=== PATIENT | male | born 1950 | race Caucasian/White ===

== ENCOUNTER 2017-09-24 09:42 | Observation (INO) | payer BC ==
[2017-09-24] MEDS ORDERED: Lisinopril 10 MG Tab PO ONE (10:52)
--- NOTE | 2017-09-24 10:56 | EDM.PDOC ---
ED HPI GENERAL MEDICAL PROBLEM - General Chief Complaint: Chest Pain Stated Complaint: [facility] Time Seen by Provider: 09/24/17 10:04 Source of Information: Reports: Patient, Family (), RN Notes Reviewed History Limitations: Reports: No Limitations - History of Present Illness INITIAL COMMENTS - FREE TEXT/NARRATIVE: The patient states that he developed some dizziness around 08:00 this morning, then some retrosternal chest discomfort around 08:30, as he was preparing to get on a horse. He states that his symptoms came on while he was standing around , not significantly exerting himself. He describes the chest discomfort as a "tightening". It is a discomfort, not a pain. It does not radiate. No associated nausea, dyspnea, diaphoresis, or sense of impending doom. It came on gradually. He was given a sublingual nitroglycerin per EMS at 09:15, which did not improve his symptoms, but a second one at 09:25 reduced his discomfort from a "3" to a "1 to 2". He states that his discomfort has increased since arriving to the ED, however. The patient states that he took 325 mg aspirin at 08:55. The patient stated that he had not previously had similar symptoms, however, his stated that he reported similar symptoms 2-3 weeks ago, on and off, but that they were not as severe, therefore the patient did not seek medical attention, and he essentially forgot about it. The patient's PCP is Dr. Michael Gamez. 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 Chest Pain Score (Numeric/FACES): 1 - Related Data Allergies Allergy/AdvReac Type Severity Reaction Status Date / Time tetracycline [Tetracycline] Allergy Rash Verified 09/24/17 09:46 Home Meds: Home Meds Lisinopril 10 mg PO DAILY 09/24/17 [History] Past Medical History Cardiovascular History: Reports: Hypertension Gastrointestinal History: Reports: GERD (untreated) Musculoskeletal History: Reports: Gout (suspected, not confirmed) Endocrine/Metabolic History: Reports: Obesity/BMI 30+ - Infectious Disease History Infectious Disease History: Reports: Chicken Pox, Measles, Mumps - Past Surgical History GI Surgical History: Reports: Other (See Below) (Volvulus repair) Musculoskeletal Surgical History: Reports: Knee Replacement (right, 02/10/2016) Social & Family History - Tobacco Use Smoking Status *Q: Never Smoker Years of Tobacco use: 40 Used Tobacco, but Quit: No Second Hand Smoke Exposure: No - Alcohol Use Days Per Week of Alcohol Use: 3 Number of Drinks Per Day: 3 Total Drinks Per Week: 9 - Recreational Drug Use Recreational Drug Use: No - Living Situation & Occupation Living situation: Reports: , with Family Occupation: Employed ED ROS GENERAL - Review of Systems Review Of Systems: See Below Constitutional: Reports: No Symptoms HEENT: Reports: No Symptoms Respiratory: Reports: No Symptoms Cardiovascular: Reports: No Symptoms Endocrine: Reports: No Symptoms GI/Abdominal: Reports: No Symptoms : Reports: No Symptoms Musculoskeletal: Reports: No Symptoms Skin: Reports: No Symptoms Neurological: Reports: No Symptoms Psychiatric: Reports: No Symptoms Hematologic/Lymphatic: Reports: No Symptoms Immunologic: Reports: No Symptoms ED EXAM, GENERAL - Physical Exam Exam: See Below Exam Limited By: No Limitations General Appearance: Alert, WD/WN, No Apparent Distress Eye Exam: Bilateral Eye: Normal Inspection Ears: Normal External Exam, Hearing Grossly Normal Nose: Normal Inspection, No Blood Throat/Mouth: Normal Inspection, Normal Lips, Normal Voice, No Airway Compromise Head: Atraumatic, Normocephalic Neck: Normal Inspection, Full Range of Motion Respiratory/Chest: No Respiratory Distress, Lungs Clear, Normal Breath Sounds, No Accessory Muscle Use, Chest Non-Tender Cardiovascular: Normal Peripheral Pulses, Regular Rate, Rhythm, No Gallop, No JVD, No Murmur, No Rub Peripheral Pulses: 4+: Radial (L), Radial (R) GI/Abdominal: Normal Bowel Sounds, Soft, Non-Tender, No Organomegaly, No Distention, No Abnormal Bruit, No Mass, Other (Obese) (Male) Exam: Deferred Rectal (Males) Exam: Deferred Back Exam: Normal Inspection, Full Range of Motion, NT Extremities: Normal Inspection, Normal Range of Motion, No Pedal Edema, Normal Capillary Refill Neurological: Alert, Oriented, Normal Cognition, No Motor/Sensory Deficits Psychiatric: Normal Affect Skin Exam: Warm, Dry, Intact, Normal Color, No Rash EKG INTERPRETATION EKG Date: 09/24/17 Time: 09:46 Rhythm: Other (Sinus bradycardia) Rate (Beats/Min): 55 [place]: Normal P-Wave: Present (1st degree AVB) QRS: Normal ST-T: Normal QT: Normal Comparison: No Change (01/28/2015) Course - Vital Signs Last Recorded V/S: Last Vital Signs Temp 36.4 C 09/24/17 09:47 Pulse 57 L 09/24/17 09:47 Resp 13 09/24/17 09:47 BP 162/106 H 09/24/17 11:05 Pulse Ox 97 09/24/17 09:47 - Orders/Labs/Meds Orders: Active Orders 24 hr Category Date Time Status EKG Documentation Completion [RC] ONETIME Care 09/24/17 12:30 Active EKG Documentation Completion [RC] STAT Care 09/24/17 10:16 Active Chest 2V [CR] Stat Exams 09/24/17 10:16 Taken Labs: Laboratory Tests 09/24/17 09/24/17 09/24/17 Range/Units 09:50 09:50 09:50 WBC 4.89 (4.23-9.07) K/mm3 RBC 4.57 L (4.63-6.08) M/mm3 Hgb 14.7 (13.7-17.5) gm/L Hct 42.3 (40.1-51.0) % MCV 92.6 H (79.0-92.2) fl MCH 32.2 (25.7-32.2) pg MCHC 34.8 (32.2-35.5) g/dl RDW Std Deviation 39.8 (35.1-43.9) fL Plt Count 197 (163-337) K/mm3 MPV 9.4 (9.4-12.3) fl Neutrophils % (Manual) 71 H (40-60) % Band Neutrophils % 0 (0-10) % Lymphocytes % (Manual) 23 (20-40) % Atypical Lymphs % 0 % Monocytes % (Manual) 1 L (2-10) % Eosinophils % (Manual) 4 (0.8-7.0) % Basophils % (Manual) 1 (0.2-1.2) Platelet Estimate Adequate RBC Morph Comment Normal PT 11.1 (8.0-13.0) SECONDS INR 1.02 APTT 28 (22-36) SECONDS D-Dimer, Quantitative 0.20 (0.19-0.59) mg/L Sodium 141 (136-145) mEq/L Potassium 4.2 (3.5-5.1) mEq/L Chloride 103 (98-107) mEq/L Carbon Dioxide 27 (21-32) mEq/L Anion Gap 15.2 H (5-15) BUN 19 H (7-18) mg/dL Creatinine 1.0 (0.7-1.3) mg/dL Est Cr Clr Drug Dosing 77.06 mL/min Estimated GFR (MDRD) > 60 (>60) mL/min BUN/Creatinine Ratio 19.0 H (14-18) Glucose 93 (80-115) mg/dL Calcium 9.5 (8.5-10.1) mg/dL Total Bilirubin 0.6 (0.2-1.0) mg/dL AST 29 (15-37) U/L ALT 33 (16-63) U/L Alkaline Phosphatase 65 (46-116) U/L Troponin I < 0.017 (0.00-0.056) ng/mL NT-Pro-B Natriuret Pep 50 (0-125) pg/mL Total Protein 7.5 (6.4-8.2) g/dl Albumin 4.3 (3.4-5.0) g/dl Globulin 3.2 gm/dL Albumin/Globulin Ratio 1.3 (1-2) 09/24/ Range/Units 12:34 WBC (4.23-9.07) K/mm3 RBC (4.63-6.08) M/mm3 Hgb (13.7-17.5) gm/L Hct (40.1-51.0) % MCV (79.0-92.2) fl MCH (25.7-32.2) pg MCHC (32.2-35.5) g/dl RDW Std Deviation (35.1-43.9) fL Plt Count (163-337) K/mm3 MPV (9.4-12.3) fl Neutrophils % (Manual) (40-60) % Band Neutrophils % (0-10) % Lymphocytes % (Manual) (20-40) % Atypical Lymphs % % Monocytes % (Manual) (2-10) % Eosinophils % (Manual) (0.8-7.0) % Basophils % (Manual) (0.2-1.2) Platelet Estimate RBC Morph Comment PT (8.0-13.0) SECONDS INR APTT (22-36) SECONDS D-Dimer, Quantitative (0.19-0.59) mg/L Sodium (136-145) mEq/L Potassium (3.5-5.1) mEq/L Chloride (98-107) mEq/L Carbon Dioxide (21-32) mEq/L Anion Gap (5-15) BUN (7-18) mg/dL Creatinine (0.7-1.3) mg/dL Est Cr Clr Drug Dosing mL/min Estimated GFR (MDRD) (>60) mL/min BUN/Creatinine Ratio (14-18) Glucose (80-115) mg/dL Calcium (8.5-10.1) mg/dL Total Bilirubin (0.2-1.0) mg/dL AST (15-37) U/L ALT (16-63) U/L Alkaline Phosphatase (46-116) U/L Troponin I < 0.017 (0.00-0.056) ng/mL NT-Pro-B Natriuret Pep (0-125) pg/mL Total Protein (6.4-8.2) g/dl Albumin (3.4-5.0) g/dl Globulin gm/dL Albumin/Globulin Ratio (1-2) Meds: Medications Discontinued Medications Generic Name Dose Route Start Last Admin Trade Name Freq PRN Reason Stop Dose Admin Lisinopril 10 mg 09/24/17 10:52 09/24/17 11:05 Prinivil PO 09/24/17 10:53 10 mg ONETIME ONE Administration - Re-Assessments/Exams Free Text/Narrative Re-Assessment/Exam: 09/24/17 10:52 The patient presents with retrosternal chest discomfort, a pressure sensation, that came on gradually with minimal exertion, and was partially relieved with nitroglycerin. This is angina. As his pain was partially relieved with nitroglycerin, this indicates incomplete blockage of a coronary artery, indicating that his troponin will likely be negative. This is buttressed by a non-acute ECG. I explained to the patient that I expect his initial troponin to be negative, and I will run a second troponin 4 hours after the onset of his symptoms, but I would expect that to be negative, as well. Nevertheless, I expect to admit the patient to the hospital for further evaluation. The patient and his expressed understanding. Two-view chest radiograph appears to be grossly normal. Cardiac silhouette is within normal limits. No pulmonary vascular congestion. No pleural effusions. No focal infiltrate. No pneumothorax. Formal read per the Radiologist pending. The patient's blood pressure has risen to 170/105, with a heart rate of 58. As the patient is not sure if he took his lisinopril this morning, I have ordered 10 mg oral lisinopril. I would like to give the patient a beta apoorva, but, unfortunately, with a heart rate of 58, I cannot. As per the HPI, the patient took 325 mg aspirin at 08:55 this morning. 09/24/17 11:24 The patient's initial workup, including troponin, is unremarkable. I have ordered a second troponin and ECG to be obtained at 12:30. 09/24/17 12:22 Repeat ECG at 12:18 demonstrates a normal sinus rhythm at 63 bpm. There is a first-degree AV block. There is LAD, but no LVH. No acute ST changes. No Q waves seen. No significant change from the earlier ECG at 09:46. 09/24/17 13:24 The patient's repeat ECG is undetectably low. The patient's case was discussed with Dr. Dubois at 13:17. He agrees to admit the patient to telemetry for an anticipated stress test this coming Tuesday, . The above was then discussed with the patient and his family. The patient is agreeable to the above plan. Departure - Departure Time of Disposition: 13:25 Disposition: Refer to Observation Condition: Fair Clinical Impression: New-onset angina - My Orders Last 24 Hours: My Active Orders 09/24/17 10:16 EKG Documentation Completion [RC] STAT Chest 2V [CR] Stat 09/24/17 12:30 EKG Documentation Completion [RC] ONETIME - Assessment/Plan Last 24 Hours: My Active Orders 09/24/17 10:16 EKG Documentation Completion [RC] STAT Chest 2V [CR] Stat 09/24/17 12:30 EKG Documentation Completion [RC] ONETIME
[2017-09-24] MEDS ORDERED: LORazepam 2 MG/ML MDV IV PRN (14:13)
[2017-09-24] MEDS ORDERED: Promethazine 12.5 MG in Sodium Chloride 0.9% 50 ML IV PRN (14:13)
[2017-09-24] MEDS ORDERED: Acetaminophen 325 MG Tab PO PRN (14:13)
[2017-09-24] MEDS ORDERED: Ondansetron 4 MG/2 ML SDV IV PRN (14:13)
[2017-09-24] MEDS ORDERED: Morphine 2 MG/ML Syringe IVPUSH PRN (14:13)
[2017-09-24] MEDS ORDERED: Acetaminophen/HYDROcodone 325-5 MG Tab PO PRN (14:13)
[2017-09-24] MEDS ORDERED: Metoprolol Tartrate 5 MG/5 ML SDV IVPUSH PRN (14:15)
[2017-09-24] MEDS ORDERED: Nitroglycerin 0.4 MG Tab.SL SL PRN (14:23)
--- NOTE | 2017-09-24 14:23 | PCM.HP ---
H&P History of Present Illness - General Date of Service: 09/24/17 Admit Problem/Dx: Admission Diagnosis/Problem Admission Diagnosis/Problem Angina Source of Information: Patient, Family, Old Records, Provider, RN Notes Reviewed History Limitations: Reports: No Limitations - History of Present Illness Initial Comments - Free Text/Narative: This is a 66 yo white male with past medical hx/o GERD, Gout and HTN who comes in with complaints of retro-sternal chest pain that started about 8:30 this morning while he was preparing to get onto a horse. His chief complaint is associated with sudden onset of dizziness. He describes his chest pain as tightness but without radiation to his neck or arms. He denies any nausea, vomiting, diaphoresis or sense of impending doom. His chest pain improved after receiving 2 doses of sublingual nitroglycerin provided by EMS. He also took aspirin 325 mg by mouth prior to presentation to the emergency department. He denies any history of TN or stroke in the past and no premature coronary artery disease in the family. His initial workup in emergency department shows a fairly unremarkable CBC. INR is 1.02 and D-dimer is 0.2. His chemistry is remarkable for anion gap of 15.2, BUN of 19, and normal troponin level 2. His initial EKG shows sinus bradycardia with a heart rate of 55. Patient is being admitted for chest pain rule out ACS. He is full code. Chest Pain Score (Numeric/FACES): 1 - Related Data Allergies/Adverse Reactions: Allergies Allergy/AdvReac Type Severity Reaction Status Date / Time tetracycline [Tetracycline] Allergy Rash Verified 09/24/17 15:23 Home Medications: Home Meds Lisinopril 10 mg PO DAILY 09/24/17 [History] Past Medical History - Past Health History Medical/Surgical History: Denies Medical/Surgical History Cardiovascular History: Reports: Hypertension Gastrointestinal History: Reports: GERD (untreated) Musculoskeletal History: Reports: Gout (suspected, not confirmed) Endocrine/Metabolic History: Reports: Obesity/BMI 30+ - Infectious Disease History Infectious Disease History: Reports: Chicken Pox, Measles, Mumps - Past Surgical History GI Surgical History: Reports: Other (See Below) (Volvulus repair) Musculoskeletal Surgical History: Reports: Knee Replacement (right, 02/10/2016) Social & Family History - Tobacco Use Smoking Status *Q: Never Smoker Years of Tobacco use: 40 Used Tobacco, but Quit: No Second Hand Smoke Exposure: No - Alcohol Use Days Per Week of Alcohol Use: 3 Number of Drinks Per Day: 3 Total Drinks Per Week: 9 - Recreational Drug Use Recreational Drug Use: No - Living Situation & Occupation Living situation: Reports: , with Family Occupation: Employed H&P Review of Systems - Review of Systems: Review Of Systems: See Below General: Denies: Fever, Chills, Malaise, Weakness, Fatigue HEENT: Denies: Contact Lenses Pulmonary: Denies: Shortness of Breath Cardiovascular: Reports: Chest Pain, Lightheadedness. Denies: Dyspnea on Exertion Gastrointestinal: Denies: No Symptoms, Constipation Genitourinary: Reports: No Symptoms Musculoskeletal: Reports: No Symptoms Skin: Reports: No Symptoms Psychiatric: Denies: Confusion, Mood Lability, Anxiety, Hallucinations Neurological: Reports: Dizziness. Denies: Confusion, Difficulty Walking, Weakness, Gait Disturbance Hematologic/Lymphatic: Reports: No Symptoms Immunologic: Reports: No Symptoms Exam - Exam Exam: See Below - Vital Signs Vital Signs: Last Vital Signs Temp 36.4 C 09/24/17 09:47 Pulse 57 L 09/24/17 09:47 Resp 13 09/24/17 09:47 BP 162/106 H 09/24/17 11:05 Pulse Ox 97 09/24/17 09:47 Weight: 102.058 kg - Exam Quality Assessment: No: Supplemental Oxygen General: Alert, Oriented, Cooperative, Other (Obese) HEENT: Conjunctiva Clear, EACs Clear, EOMI, Hearing Intact, Mucosa Moist & [place] , Nares Patent, Normal Nasal Septum, Posterior Pharynx Clear, Pupils Equal, Pupils Reactive Neck: Supple, Trachea Midline, +2 Carotid Pulse wo Bruit, Full Range of Motion. No: JVD Lungs: Clear to Auscultation, Normal Respiratory Effort Cardiovascular: Regular Rate, Regular Rhythm, Other (No pain with palpation) GI/Abdominal Exam: Normal Bowel Sounds, Soft, Non-Tender, No Organomegaly, No Distention, No Abnormal Bruit, No Mass, Pelvis Stable (Male) Exam: Deferred Rectal (Males) Exam: Deferred Back Exam: Normal Inspection, Decreased Range of Motion Extremities: Normal Inspection, Normal Range of Motion, Non-Tender, No Pedal Edema, Normal Capillary Refill Peripheral Pulses: 2+: Posterior Tibial (L), Posterior Tibial (R), Dorsalis Pedis (L), Dorsalis Pedis (R) Skin: Warm, Dry, Intact Neuro Extensive - Mental Status: Oriented x3, Normal Cognition, Memory Intact Neuro Extensive - Motor, Sensory, Reflexes: CN II-XII Intact, Normal Gait Psychiatric: Alert, Normal Affect, Normal Mood - Patient Data Result Diagrams: 09/24/17 09:50 09/24/17 09:50 EKG INTERPRETATION EKG Date: 09/24/17 Time: 09:46 Rhythm: Other (Sinus Bradycardia) Rate (Beats/Min): 55 [place]: Normal P-Wave: Present QRS: Normal ST-T: Normal QT: Normal Comparison: Change From Previous EKG *Q Meaningful Use (ADM) - VTE *Q VTE Criteria *Q: - Stroke *Q Stroke Criteria *Q: - AMI *Q AMI Criteria *Q: Problem List Initiated/Reviewed/Updated: Yes Orders Last 24hrs: Active Orders 24 hr Category Date Time Status Admission Status [Patient Status] [ADT] Routine ADT 09/24/17 14:07 Active Antiembolic Devices [RC] PER UNIT ROUTINE Care 09/24/17 14:13 Ordered Cardiac Monitoring [RC] CONTINUOUS Care 09/24/17 14:13 Ordered EKG 12 Lead [EKG Documentation Completion] [RC] AM Care 09/25/17 09:00 Ordered Height and Weight [RC] DAILY Care 09/24/17 14:13 Ordered Intake and Output [RC] QSHIFT Care 09/24/17 14:13 Ordered Oxygen Therapy [RC] PRN Care 09/24/17 14:13 Ordered Up With Assistance [RC] ASDIRECTED Care 09/24/17 14:13 Ordered Up ad Lynette [RC] ASDIRECTED Care 09/24/17 14:13 Ordered VTE/DVT Education [RC] PER UNIT ROUTINE Care 09/24/17 14:13 Ordered Vital Signs [RC] Q4H Care 09/24/17 14:13 Ordered Consult to Case Management [CONS] Routine Cons 09/24/17 14:14 Ordered Consult to Auxiliary Powerplant Operator [CONS] Routine Cons 09/24/17 14:14 Ordered Regular Diet [DIET] Diet 09/24/17 Lunch Ordered BASIC METABOLIC PANEL,BMP [CHEM] AM Lab 09/25/17 05:11 Ordered BASIC METABOLIC PANEL,BMP [CHEM] AM Lab 09/26/17 05:11 Ordered BASIC METABOLIC PANEL,BMP [CHEM] AM Lab 09/27/17 05:11 Ordered CKMB [CHEM] AM Lab 09/25/17 05:11 Ordered CKMB [CHEM] Routine Lab 09/24/17 18:00 Ordered LIPID PANEL [CHEM] AM Lab 09/25/17 05:11 Ordered MAGNESIUM [CHEM] AM Lab 09/25/17 05:11 Ordered MAGNESIUM [CHEM] AM Lab 09/26/17 05:11 Ordered MAGNESIUM [CHEM] AM Lab 09/27/17 05:11 Ordered TROPONIN I [CHEM] AM Lab 09/25/17 05:11 Ordered TROPONIN I [CHEM] Routine Lab 09/24/17 18:00 Ordered Acetaminophen [Tylenol] Med 09/24/17 14:13 Ordered 650 mg PO Q4H PRN Acetaminophen/HYDROcodone [[place] 325-5 MG] Med 09/24/17 14:13 Ordered 1 tab PO Q4H PRN Famotidine [Pepcid] Med 09/24/17 21:00 Ordered 20 mg IVPUSH BID LORazepam [Ativan] Med 09/24/17 14:13 Ordered 1 mg IV Q6H PRN Lisinopril [Prinivil] Med 09/25/17 09:00 Ordered 10 mg PO DAILY Magnesium Rep Pharmacy to Dose [Pharmacy to Dose - Med 09/24/17 14:15 Ordered Magnesium Replacement] 1 dose .XX ASDIRECTED Metoprolol Tartrate [Lopressor] Med 09/24/17 14:15 Ordered 5 mg IVPUSH Q4H PRN Morphine Med 09/24/17 14:13 Ordered 1 mg IVPUSH Q4H PRN Ondansetron [Zofran] Med 09/24/17 14:13 Ordered 4 mg IV Q6H PRN Potassium Rep Pharmacy to Dose [Pharmacy to Dose - Med 09/24/17 14:15 Ordered Potassium Replacement] 1 dose .XX ASDIRECTED Promethazine [Phenergan] 12.5 mg Med 09/24/17 14:13 Ordered Sodium Chloride 0.9% [Normal Saline] 50 ml IV Q6H hydrALAZINE [Apresoline] Med 09/24/17 14:15 Ordered 20 mg IVPUSH Q4H PRN Sequential Compression Device [OM.PC] Per Unit Routine Oth 09/24/17 14:13 Ordered Resuscitation Status Routine Resus Stat 09/24/17 14:13 Ordered Medication Orders Acetaminophen (Tylenol) 650 mg PO Q4H PRN PRN Reason: Pain (Mild 1-3)/fever Hydrocodone Bitart/Acetaminophen ([place] 325-5 Mg) 1 tab PO Q4H PRN PRN Reason: Pain (moderate 4-6) Famotidine (Pepcid) 20 mg IVPUSH BID CORA Hydralazine HCl (Apresoline) 20 mg IVPUSH Q4H PRN PRN Reason: Hypertension Promethazine HCl 12.5 mg/ (Sodium Chloride) 50.5 mls @ 100 mls/hr IV Q6H PRN PRN Reason: Nausea/Vomiting Lisinopril (Prinivil) 10 mg PO DAILY [place]A Lorazepam (Ativan) 1 mg IV Q6H PRN PRN Reason: Anxiety Magnesium Sulfate (Pharmacy To Dose - Magnesium Replacement) 1 dose .XX ASDIRECTED [facility] Metoprolol Tartrate (Lopressor) 5 mg IVPUSH Q4H PRN PRN Reason: Tachycardia Morphine Sulfate (Morphine) 1 mg IVPUSH Q4H PRN PRN Reason: Pain (severe 7-10) Stop: 09/25/17 14:13 Ondansetron HCl (Zofran) 4 mg IV Q6H PRN PRN Reason: Nausea/Vomiting Potassium Chloride (Pharmacy To Dose - Potassium Replacement) 1 dose .XX ASDIRECTED [facility] Assessment/Plan Comment:: Assessment/Plan: Acute: Chest Pain r/o ACS - HEART Score is 2. Low Score (0-3 points), risk of MACE of 0.9-1.7%: Predicts 6-week risk of major adverse cardiac event - Had GERD but cannot r/o cardiac in etiology - No Hx/o Premature CAD in family - Risk factors: Obesity and HTN - No HLD, CAD, Hx/o [place]/Stroke, Non-smoker - CP protocol: Serial Troponin Q6 and ekg - Lipid panel in AM - ASA, Statin, Nitro, Morphine, +/- BB - He is aware cardiac stress test is only avail on week Chronic: HTN GERD Gout Obesity with BMI of 32 Plan: Admit to [facility] with Tele Routine AM Labs Cardiac Work Up Resume Home Meds Stress test Tuesday CM/SW for d/c planning Code status: 1
[2017-09-24] MEDS ORDERED: Temazepam 15 MG Cap PO PRN (16:05)
[2017-09-24] MEDS: Famotidine 20 MG/2 ML SDV IVPUSH SCH (21:04)
[2017-09-24] MEDS: hydrALAZINE 20 MG/ML SDV IVPUSH PRN (21:16)
--- NOTE | 2017-09-25 03:50 | PCM.PN ---
- General Info Date of Service: 09/25/17 Admission Dx/Problem (Free Text): Admission Diagnosis/Problem Admission Diagnosis/Problem Angina Subjective Update: Follow Up Functional Status: Reports: Pain Controlled, Tolerating Diet, Ambulating, Urinating. Denies: New Symptoms - Review of Systems General: Denies: Fever, Weakness, Fatigue, Malaise, Chills HEENT: Reports: No Symptoms Pulmonary: Denies: Shortness of Breath Cardiovascular: Denies: Chest Pain, Palpitations, Dyspnea on Exertion, Lightheadedness Gastrointestinal: Denies: Abdominal Pain, Nausea, Vomiting Genitourinary: Reports: No Symptoms Musculoskeletal: Reports: No Symptoms Skin: Denies: Cyanosis, Pallor, Diaphoresis, Rash Neurological: Denies: Confusion, Difficulty Walking, Weakness, Gait Disturbance Psychiatric: Denies: Depression, Anxiety, Agitation, Hallucinations Systems Review Comment:: No overnight or acute issues. He did not sleep well. He has no chest pain. He reports no new complaints. His BP is elevated this am. - Patient Data Vitals - Most Recent: Last Vital Signs Temp 36.6 C 09/24/17 21:08 Pulse 57 L 09/24/17 21:08 Resp 16 09/24/17 21:08 BP 142/78 H 09/24/17 21:22 Pulse Ox 94 L 09/24/17 21:08 Weight - Most Recent: 102.058 kg I&O - Last 24 Hours: Intake & Output 09/24/17 09/24/17 09/25/17 14:59 22:59 06:59 Intake Total 0 Balance 0 Lab Results Last 24 Hours: Laboratory Results - last 24 hr 09/24/17 Range/Units 18:00 CK-MB (CK-2) 1.9 (0-3.6) ng/ml Troponin I < 0.017 (0.00-0.056) ng/mL Med Orders - Current: Current Medications Acetaminophen (Tylenol) 650 mg PO Q4H PRN PRN Reason: Pain (Mild 1-3)/fever Hydrocodone Bitart/Acetaminophen ([place] 325-5 Mg) 1 tab PO Q4H PRN PRN Reason: Pain (moderate 4-6) Famotidine (Pepcid) 20 mg IVPUSH BID COR[facility] Last Admin: 09/24/17 21:04 Dose: 20 mg Hydralazine HCl (Apresoline) 20 mg IVPUSH Q4H PRN PRN Reason: Hypertension Last Admin: 09/24/17 21:16 Dose: 20 mg Promethazine HCl 12.5 mg/ (Sodium Chloride) 50.5 mls @ 100 mls/hr IV Q6H PRN PRN Reason: Nausea/Vomiting Lisinopril (Prinivil) 10 mg PO DAILY [facility] Lorazepam (Ativan) 1 mg IV Q6H PRN PRN Reason: Anxiety Magnesium Sulfate (Pharmacy To Dose - Magnesium Replacement) 1 dose .XX ASDIRECTED [facility] Metoprolol Tartrate (Lopressor) 5 mg IVPUSH Q4H PRN PRN Reason: Tachycardia Morphine Sulfate (Morphine) 1 mg IVPUSH Q4H PRN PRN Reason: Pain (severe 7-10) Stop: 09/25/17 14:13 Nitroglycerin (Nitrostat) 0.4 mg SL Q5M PRN PRN Reason: Chest Pain Ondansetron HCl (Zofran) 4 mg IV Q6H PRN PRN Reason: Nausea/Vomiting Potassium Chloride (Pharmacy To Dose - Potassium Replacement) 1 dose .XX ASDIRECTED [facility] Temazepam (Restoril) 15 mg PO BEDTIME PRN PRN Reason: Insomnia Last Admin: 09/24/17 21:04 Dose: 15 mg Discontinued Medications Lisinopril (Prinivil) 10 mg PO ONETIME ONE Stop: 09/24/17 10:53 Last Admin: 09/24/17 11:05 Dose: 10 mg - Exam General: Alert, Oriented, Cooperative, No Acute Distress HEENT: Pupils Equal, Pupils Reactive, EOMI, Mucous Membr. Moist/[place] Neck: Supple, Trachea Midline, No JVD, No Thyromegaly Lungs: Clear to Auscultation, Normal Respiratory Effort Cardiovascular: Regular Rate, Regular Rhythm GI/Abdominal Exam: Normal Bowel Sounds, Soft, Non-Tender, No Organomegaly, No Distention, No Abnormal Bruit (Male) Exam: Deferred Back Exam: Normal Inspection, Decreased Range of Motion Extremities: Normal Inspection, Normal Range of Motion, Non-Tender, No Pedal Edema, Normal Capillary Refill Peripheral Pulses: 2+: Dorsalis Pedis (L), Dorsalis Pedis (R) Skin: Warm, Dry, Intact Neurological: No New Focal Deficit Psy/Mental Status: Alert, Normal Affect, Normal Mood - Problem List Review Problem List Initiated/Reviewed/Updated: Yes - My Orders Last 24 Hours: My Active Orders 09/24/17 14:13 Antiembolic Devices [RC] QSHIFT Cardiac Monitoring [RC] CONTINUOUS Height and Weight [RC] 04 Intake and Output [RC] 04,16 Oxygen Therapy [RC] PRN Up With Assistance [RC] ASDIRECTED Up ad Lynette [RC] ASDIRECTED VTE/DVT Education [RC] Vital Signs [RC] Q4HR Acetaminophen [Tylenol] 650 mg PO Q4H PRN Acetaminophen/HYDROcodone [[place] 325-5 MG] 1 tab PO Q4H PRN LORazepam [Ativan] 1 mg IV Q6H PRN Morphine 1 mg IVPUSH Q4H PRN Ondansetron [Zofran] 4 mg IV Q6H PRN Promethazine [Phenergan] 12.5 mg Sodium Chloride 0.9% [Normal Saline] 50 ml IV Q6H Sequential Compression Device [OM.PC] Per Unit Routine Resuscitation Status Routine 09/24/17 14:14 Consult to Case Management [CONS] Routine Consult to L[employer]er [CONS] Routine 09/24/17 14:15 Magnesium Rep Pharmacy to Dose [Pharmacy to Dose - Magnesium Replacement] 1 dose .XX ASDIRECTED Metoprolol Tartrate [Lopressor] 5 mg IVPUSH Q4H PRN Potassium Rep Pharmacy to Dose [Pharmacy to Dose - Potassium Replacement] 1 dose .XX ASDIRECTED hydrALAZINE [Apresoline] 20 mg IVPUSH Q4H PRN 09/24/17 14:23 Nitroglycerin [Nitrostat] 0.4 mg SL Q5M PRN 09/24/17 16:05 Temazepam [Restoril] 15 mg PO BEDTIME PRN 09/24/17 21:00 Famotidine [Pepcid] 20 mg IVPUSH BID 09/24/17 Lunch Regular Diet [DIET] 09/25/17 05:11 BASIC METABOLIC PANEL,BMP [CHEM] AM CKMB [CHEM] AM LIPID PANEL [CHEM] AM MAGNESIUM [CHEM] AM TROPONIN I [CHEM] AM 09/25/17 09:00 EKG 12 Lead [EKG Documentation Completion] [RC] AM Lisinopril [Prinivil] 10 mg PO DAILY 09/26/17 05:11 BASIC METABOLIC PANEL,BMP [CHEM] AM MAGNESIUM [CHEM] AM 09/26/17 07:00 Cardiolite Stress Test [Myocardial Perf Spect Multi] [NM] Routine 09/27/17 05:11 BASIC METABOLIC PANEL,BMP [CHEM] AM MAGNESIUM [CHEM] AM - Plan Plan:: Assessment/Plan: Acute: Chest Pain r/o ACS - HEART Score is 2. Low Score (0-3 points), risk of MACE of 0.9-1.7%: Predicts 6-week risk of major adverse cardiac event - Had GERD but cannot r/o cardiac in etiology - No Hx/o Premature CAD in family - Risk factors: Obesity and HTN - No HLD, CAD, Hx/o TN/Stroke, Non-smoker - CP protocol: Serial CE: all negative - EKG this am: Sinus Bradycardia with HR of 56 - Lipid panel: Abnormal LDL level of 118 - ASA, Nitro, Morphine, +/- BB - He is aware cardiac stress test is only avail on weekdays HTN - Not controlled - He is only on 10 mg po Lisinopril; will increased to 20 mg po daily - PRN hydralazine - Advised to check his TID and at least 3-4/week until he sees his PCP HLD - LDL is 118 but HLD is 55 - Hold off statin - Start low dose ASA - LSM at this point and AHA diet Chronic: GERD Gout Obesity with BMI of 32 Plan: He is clinically stable Routine AM Labs Cardiac Work Up Stress test tomorrow CM/SW for d/c planning Code status: 1
[2017-09-25] MEDS: Famotidine 20 MG/2 ML SDV IVPUSH SCH ×2 (08:47→21:26)
[2017-09-25] MEDS ORDERED: Lisinopril 10 MG Tab PO SCH ×2 (09:00→10:45)
[2017-09-25] MEDS: hydrALAZINE 20 MG/ML SDV IVPUSH PRN (09:40)
--- NOTE | 2017-09-25 09:55 | CR ---
Chest: Two views of the chest were obtained. Comparison: No prior chest x-ray. Heart size is normal. Mild tortuosity of the thoracic aorta is seen. Lungs are hyperinflated likely representing emphysematous change. Minimal discoid atelectasis or scarring seen within the lateral left costophrenic angle. Lungs otherwise are clear. Slight degenerative spurring is noted within the spine. Impression: 1. Possible emphysematous change. Other incidental findings. 2. Nothing acute is identified on two-view chest x-ray. Diagnostic code #2
[2017-09-25] MEDS ORDERED: Aspirin 81 MG Tab.EC PO ONE (11:00)
[2017-09-25] MEDS ORDERED: Temazepam 15 MG Cap PO PRN (21:22)
[2017-09-25] MEDS ORDERED: LORazepam 2 MG/ML MDV IVPUSH ONE (21:22)
[2017-09-26] MEDS: hydrALAZINE 20 MG/ML SDV IVPUSH PRN (04:10)
[2017-09-26] MEDS ORDERED: Lisinopril 20 MG Tab PO SCH (09:00)
[2017-09-26] MEDS ORDERED: Aspirin 81 MG Tab.EC PO SCH (09:00)
--- NOTE | 2017-09-26 09:21 | PCM.DCSUM1 ---
Discharge Summary - Hospital Course Brief History: This is a 66 yo white male with past medical hx/o GERD, Gout and HTN who comes in with complaints of retro-sternal chest pain while he was getting ready to get onto a horse. He was admitted for chest pain r/o ACS. - Discharge Data Discharge Date: 09/26/17 Discharge Disposition: Home, Self-Care 01 Condition: Good - Discharge Diagnosis/Problem(s) (1) New-onset angina SNOMED Code(s): 617508049 ICD Code: I20.9 - ANGINA PECTORIS, UNSPECIFIED Status: Acute (2) Dyslipidemia SNOMED Code(s): 079120051 ICD Code: E78.5 - HYPERLIPIDEMIA, UNSPECIFIED Status: Acute - Patient Summary/Data Operative Procedure(s) Performed: None Complications: None Consults: Consultations 09/24/17 14:14 Consult to Case Management [CONS] Routine Consult to Log Roper [CONS] Routine Labs Pending at D/C: None Recommended Follow-up Testing/Procedures: None Hospital Course: Patient was primarily admitted for chest pain r/o ACS. He scored a 2 on HEART Score and carried a hx/o HTN for CAD risk factor. All basic cardiac work to include serial ekgs and cardiac enzymes were negative. However he received medical treatment and his symptom resolved immediately. His cardiac stress test was negative to suggest acute ischemia and therefore we felt his chest pain was not cardiac in etiology. His hospital course was uncomplicated but his hypertension was somewhat labile. However his pressures improved after we adjusted his lisinopril dose. On this admission, he was found to have an abnormal LDL but his HLD level was sufficient. No statin was provided but he was discharged with low dose ASA. He was advised to check his blood pressure at least 3 times a day and 3-4 times a week. He was further advised to come back or seek immediate care should his symptom persists or gets worse. The patient expressed understanding and in agreement with the plans as discussed above. All questions were answered. - Patient Instructions Diet: Heart Healthy Diet, Usual Diet as Tolerated Activity: As Tolerated Driving: May Drive Today Showering/Bathing: May Shower Notify Provider of: Fever, Increased Pain, Nausea and/or Vomiting Other/Special Instructions: - Please resume all home and outdoor activities w/o restrictions. - Take 2 tabs of Lisinopril Daily. - Check your blood pressure at least 3 times a day and 3-4 times a week. Show your log on your follow up appointment with your family doctor. - Call or follow up with your family doctor should you have any further questions or concerns right after discharge - Discharge Plan Prescriptions/Med Rec: Aspirin 81 mg PO BRK #30 tab.chew Home Medications: Home Meds Aspirin 81 mg PO BRK #30 tab.chew 09/26/17 [Rx] Lisinopril 10 mg PO ASDIRECTED #60 09/26/17 [Rx] Patient Handouts: Fat and Cholesterol Restricted Diet, Edhe-px-[id number], Angina Pectoris, Qbsi-[id number]-[id number], Stress and Stress Management Referrals: Michael Gamez Jr, MD [Primary Care Provider] - (Please call and schedule a follow-up with Dr. Gamez in 2 weeks. ) - Discharge Summary/Plan Comment DC Time >30 min.: Yes (45 mins) Discharge Summary/Plan Comment: Discharge to Home - General Info Date of Service: 09/26/17 Admission Dx/Problem (Free Text: Admission Diagnosis/Problem Admission Diagnosis/Problem Angina Subjective Update: Follow Up Functional Status: Reports: Pain Controlled, Tolerating Diet, Ambulating, Urinating. Denies: New Symptoms - Review of Systems General: Denies: Fever, Weakness, Fatigue, Malaise, Chills HEENT: Reports: No Symptoms Pulmonary: Denies: Shortness of Breath Cardiovascular: Denies: Chest Pain, Dyspnea on Exertion Gastrointestinal: Denies: Abdominal Pain, Nausea, Vomiting Genitourinary: Reports: No Symptoms Musculoskeletal: Reports: No Symptoms Skin: Reports: No Symptoms Neurological: Denies: Confusion, Difficulty Walking, Weakness, Gait Disturbance Psychiatric: Denies: Confusion, Anxiety, Agitation, Hallucinations Systems Review Comment: No overnight or acute issues. He slept really well. He has no complaints this am. - Patient Data Vitals - Most Recent: Last Vital Signs Temp 36.7 C 09/26/17 05:59 Pulse 63 09/26/17 04:10 Resp 14 09/26/17 04:10 BP 132/81 09/26/17 05:59 Pulse Ox 94 L 09/26/17 04:10 Weight - Most Recent: 103.51 kg I&O - Last 24 hours: Intake & Output 09/25/17 09/26/17 09/26/17 22:59 06:59 14:59 Intake Total 1000 1400 Balance 1000 1400 Lab Results - Last 24 hrs: Laboratory Results - last 24 hr 09/26/17 Range/Units 06:10 Sodium 141 (136-145) mEq/L Potassium 4.1 (3.5-5.1) mEq/L Chloride 106 (98-107) mEq/L Carbon Dioxide 23 (21-32) mEq/L Anion Gap 16.1 H (5-15) BUN 16 (7-18) mg/dL Creatinine 0.9 (0.7-1.3) mg/dL Est Cr Clr Drug Dosing 85.62 mL/min Estimated GFR (MDRD) > 60 (>60) mL/min BUN/Creatinine Ratio 17.8 (14-18) Glucose 100 (80-115) mg/dL Calcium 9.0 (8.5-10.1) mg/dL Magnesium 2.1 (1.8-2.4) mg/dl Med Orders - Current: Current Medications Acetaminophen (Tylenol) 650 mg PO Q4H PRN PRN Reason: Pain (Mild 1-3)/fever Hydrocodone Bitart/Acetaminophen ([place] 325-5 Mg) 1 tab PO Q4H PRN PRN Reason: Pain (moderate 4-6) Aspirin (Halfprin) 81 mg PO DAILY [facility] Famotidine (Pepcid) 20 mg IVPUSH BID CORA Last Admin: 09/25/17 21:26 Dose: 20 mg Hydralazine HCl (Apresoline) 20 mg IVPUSH Q4H PRN PRN Reason: Hypertension Last Admin: 09/26/17 04:10 Dose: 20 mg Promethazine HCl 12.5 mg/ (Sodium Chloride) 50.5 mls @ 100 mls/hr IV Q6H PRN PRN Reason: Nausea/Vomiting Lisinopril (Prinivil) 20 mg PO DAILY [facility] Lorazepam (Ativan) 1 mg IV Q6H PRN PRN Reason: Anxiety Magnesium Sulfate (Pharmacy To Dose - Magnesium Replacement) 1 dose .XX ASDIRECTED PRN PRN Reason: RX to Dose Metoprolol Tartrate (Lopressor) 5 mg IVPUSH Q4H PRN PRN Reason: Tachycardia Nitroglycerin (Nitrostat) 0.4 mg SL Q5M PRN PRN Reason: Chest Pain Ondansetron HCl (Zofran) 4 mg IV Q6H PRN PRN Reason: Nausea/Vomiting Potassium Chloride (Pharmacy To Dose - Potassium Replacement) 1 dose .XX ASDIRECTED PRN PRN Reason: Rx to Dose Temazepam (Restoril) 30 mg PO BEDTIME PRN PRN Reason: Insomnia Last Admin: 09/25/17 21:25 Dose: 30 mg Discontinued Medications Aspirin (Halfprin) 81 mg PO ONETIME ONE Stop: 09/25/17 11:01 Last Admin: 09/25/17 12:03 Dose: 81 mg Lisinopril (Prinivil) 10 mg PO ONETIME ONE Stop: 09/24/17 10:53 Last Admin: 09/24/17 11:05 Dose: 10 mg Lisinopril (Prinivil) 10 mg PO DAILY CORA Last Admin: 09/25/17 08:48 Dose: 10 mg Lisinopril (Prinivil) 20 mg PO DAILY [facility] Lorazepam (Ativan) 0.5 mg IVPUSH ONETIME ONE Stop: 09/25/17 21:23 Last Admin: 09/25/17 21:26 Dose: 0.5 mg Morphine Sulfate (Morphine) 1 mg IVPUSH Q4H PRN PRN Reason: Pain (severe 7-10) Stop: 09/25/17 14:13 Temazepam (Restoril) 15 mg PO BEDTIME PRN PRN Reason: Insomnia Last Admin: 09/24/17 21:04 Dose: 15 mg - Exam General: Reports: Alert, Oriented, Cooperative, No Acute Distress HEENT: Reports: Pupils Equal, Pupils Reactive, EOMI, Mucous Membr. Moist/[place] Neck: Reports: Supple, Trachea Midline, No JVD, No Thyromegaly Lungs: Reports: Clear to Auscultation, Normal Respiratory Effort Cardiovascular: Reports: Regular Rate, Regular Rhythm GI/Abdominal Exam: Normal Bowel Sounds, Soft, Non-Tender, No Organomegaly, No Distention, No Abnormal Bruit, No Mass, Pelvis Stable (Male) Exam: Deferred Rectal (Males) Exam: Deferred Back Exam: Reports: Normal Inspection, Decreased Range of Motion Extremities: Normal Inspection, Normal Range of Motion, Non-Tender, No Pedal Edema, Normal Capillary Refill Skin: Reports: Warm, Dry, Intact Neurological: Reports: No New Focal Deficit Psy/Mental Status: Reports: Alert, Normal Affect, Normal Mood *Q Meaningful Use (DIS) - VTE *Q VTE Criteria *Q: - Stroke *Q Stroke Criteria *Q: - AMI *Q AMI Criteria *Q:
[2017-09-26] MEDS: Famotidine 20 MG/2 ML SDV IVPUSH SCH (12:19)
--- NOTE | 2017-09-26 14:45 | NM ---
Cardiolite cardiac exam Technique: I have data stating the patient was stressed utilizing treadmill protocol. Patient reached 133 bpm which is also the patient's 85% maximum predicted heart rate. Stress dose of technetium 99m Cardiolite was 10.8 mCi. Rest dose was 29.1 mCi. SPECT imaging obtained in 3 planes for both portions of the study. Study was also gated. Low-dose chest CT performed to allow for attenuation correction. Findings: Diminished activity seen within portions of the inferior and posterior wall on the non-attenuation corrected images. This is believed to be due to diaphragmatic artifact as the inferior and posterior gross appeared normal in perfusion on the attenuation corrected images. No reversible type defects are appreciated. Ejection fraction is 56%. Wall thickening appears to be within normal limits. Impression: 1. Artifact believed to be due to diaphragmatic attenuation within the inferior and posterior wall. 2. Nothing definite is seen to indicate reversible ischemia. Normal ejection fraction is noted. Diagnostic code #2
[2017-09-26 17:59] VITALS: BP 135/81
--- NOTE | 2017-09-27 06:45 | STRESS ---
REQUESTING PHYSICIAN: DATE: 09/26/2017 ORDERING PROVIDER: Dr. Dubois. PROCEDURE: Cardiolite stress test. INDICATION: Chest pain. BASELINE EKG: Normal sinus rhythm. Ventricular rate 62 beats per minute. Inverted T-waves are noted in lead III. PROTOCOL: Patricio protocol. Max heart rate 137. Peak blood pressure 196/83. Total test time, 8 minutes and 30 seconds. METS achieved 10.1. REASON FOR STOPPING TEST: Achieved target heart rate and fatigue. During exertion and recovery, the patient did not experience any chest pain or anginal equivalents. He did become short of breath, but was able to tolerate exercise without modification of the protocol. No ischemic changes were noted. No arrhythmias, PVCs, or PACs were noted. IMPRESSION: 1. Electrographically-negative exercise stress test for ischemia. 2. Normal blood pressure response to stress/exercise. 3. Good exercise tolerance. 4. Nuclear imaging results pending and will be reported separately per radiologist. MMODAL /[id number]
== END 2017-09-26 15:21 | disposition home or self-care (01) ==
LOC: JD.ED 09:42 → JD.MS 14:06 → UNDOADMOB 14:06 → JD.MS 14:07
PROVIDERS: ADMIT Internal Medicine; ATTEND Internal Medicine
DX: I20.9 Angina pectoris, unspecified (principal); E78.5 Hyperlipidemia, unspecified; I10 Essential (primary) hypertension; M10.9 Gout, unspecified; K21.9 Gastro-esophageal reflux disease without esophagitis; E66.9 Obesity, unspecified; Z88.1 Allergy status to other antibiotic agents; Z79.899 Other long term (current) drug therapy; Z96.651 Presence of right artificial knee joint; Z98.890 Other specified postprocedural states; Z68.32 Body mass index [BMI] 32.0-32.9, adult
CPT/HCPCS: 36415; 71020; 78452; 80048; 80053; 80061; 82553; 83735; 83880; 84484; 85025; 85379; 85610; 85730; 93005; 93017; 99285; A9270; A9500; J0360; J2060; 96374; 96375; 96376; G0378

== ENCOUNTER 2018-05-14 14:54 | Emergency (ER) | payer BC ==
--- NOTE | 2018-05-14 15:15 | EDM.PDOC ---
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 He was leading his horse when all of a sudden his horse jumped and did almost 180 turn. Vital 6 or in the area and so he is not sure what spooked the horse. At any rate the horse's head came in contact with his right face primarily his right supraorbital ridge. The force of the blow knocked him to the ground and he was dazed and confused for a period of time and asked over and over again what it happened to him suggesting he certainly suffered a concussion. He has a moderate headache at this time. Injury occurred approximately 2 hours before arrival in the ED. He complains of diffuse cervical neck pain as well. States no injuries below the waist. No pain in his upper or lower back. He is not nauseated or vomiting. He has no visual acuity changes. Tetanus toxoid is up-to- date about 4-5 years ago. Onset: Today Onset Date: 05/14/18 Onset Time: 13:10 Duration: Hour(s): Location: Reports: Head, Face, Neck Quality: Reports: Ache (Headache), Other Severity: Moderate (Mild pain over the abrasion right supraorbital ridge and eyebrow area) Improves with: Reports: None Worsens with: Reports: None Context: Reports: Trauma (Blunt head trauma secondary to being head butted by a horse). Denies: Activity, Exercise, Lifting, Sick Contact Associated Symptoms: Reports: Confusion, Headaches, Loss of Appetite. Denies: Chest Pain, Cough, cough w sputum, Diaphoresis, Malaise, Nausea/Vomiting, Rash, Seizure, Shortness of Breath, Syncope Treatments [employer]: Reports: Other (see below) (None.) Head Pain Score (Numeric/FACES): 3 - Related Data Allergies Allergy/AdvReac Type Severity Reaction Status Date / Time tetracycline [Tetracycline] Allergy Rash Verified 09/24/17 15:23 Home Meds: Home Meds Aspirin 81 mg PO BRK #30 tab.chew 09/26/17 [Rx] Lisinopril 10 mg PO ASDIRECTED #60 09/26/17 [Rx] Past Medical History - Past Health History Medical/Surgical History: Denies Medical/Surgical History HEENT History: Reports: Cataract, Impaired Vision, Other (See Below) Other HEENT History: Reading glasses only. Cardiovascular History: Reports: Hypertension Respiratory History: Reports: Other (See Below) Other Respiratory History: Pneumonia, years ago. Gastrointestinal History: Reports: GERD Other Gastrointestinal History: Twisted intestine, and surgery Musculoskeletal History: Reports: Gout Endocrine/Metabolic History: Reports: Obesity/BMI 30+ - Infectious Disease History Infectious Disease History: Reports: Chicken Pox, Measles, Mumps - Past Surgical History HEENT Surgical History: Reports: Cataract Surgery Musculoskeletal Surgical History: Reports: Knee Replacement Social & Family History - Family History Family Medical History: Noncontributory HEENT: Reports: Cataract OBGYN: Reports: None Endocrine/Metabolic: Reports: Diabetes, type II - Tobacco Use Smoking Status *Q: Never Smoker - Caffeine Use Caffeine Use: Reports: Coffee - Recreational Drug Use Recreational Drug Use: No - Living Situation & Occupation Living situation: Reports: , with Family Occupation: Employed ED ROS GENERAL - Review of Systems Review Of Systems: See Below Constitutional: Reports: Fatigue, Decreased Appetite. Denies: Fever, Chills, Malaise, Weakness, Weight Loss HEENT: Reports: Other. Denies: Ear Pain, Eye Discharge, Eye Pain, Glasses, Hearing Loss, Nose Pain, Sinus Problem, Throat Pain, Throat Swelling Respiratory: Reports: No Symptoms (.Bite his tongue.) Cardiovascular: Reports: Blood Pressure Problem, Dyspnea on Exertion ( Controlled with medication on heavy exertion.) Endocrine: Reports: No Symptoms GI/Abdominal: Reports: No Symptoms : Reports: No Symptoms Musculoskeletal: Reports: Neck Pain (Chronic low back pain), Shoulder Pain, Back Pain, Joint Pain (At times) Skin: Reports: Other Neurological: Reports: Confusion. Denies: Paresthesia, Pre-Existing Deficit, Seizure, Syncope, Tingling, Tremors, Trouble Speaking, Difficulty Walking, Weakness, Change in Speech Psychiatric: Reports: No Symptoms Hematologic/Lymphatic: Reports: No Symptoms Immunologic: Reports: No Symptoms ED EXAM, HEAD INJURY - Physical Exam Exam: See Below Exam Limited By: No Limitations General Appearance: Alert, WD/WN, Mild Distress Head: Facial Abrasions (Abrasions or laceration to the right medial eyebrow supraorbital ridge area.), Other (Superficial scratch left parietal scalp.). No : Scalp Tenderness Nexus Criteria: Posterior, Midline Cervical Tenderness. No: Evidence of Intoxication, Altered Level of Consciousness, Focal Neurological Deficit, Painful Distraction Injuries Eyes: Bilateral Eye: Normal Inspection, PERRL Ears: Normal TMs Nose: Normal Inspection Throat/Mouth: Normal Inspection, Normal Lips, Normal Oropharynx, Other (No evidence of trauma to the tongue.) Neck: Limited Range of Motion, Tenderness, Tender Lateral (Tender bilateral cervical spine.). No: Full Range of Motion Respiratory: No Respiratory Distress, Lungs Clear, Normal Breath Sounds, No Accessory Muscle Use, Chest Non-Tender Cardiovascular: Normal Peripheral Pulses, Regular Rate, Rhythm, No Edema, No Murmur GI/Abdominal Exam: Normal Bowel Sounds, Soft, Non-Tender, No Organomegaly, Other (No abrasions or contusions to the abdomen.) Rectal (Males) Exam: Normal Exam Back Exam: Normal Inspection, Full Range of Motion. 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 nml As Tested, No Motor/Sensory Deficits, Alert, Normal Mood/Affect, Oriented x 3 Skin: Normal Color, Warm/Dry, Other (Abrasion medial right eyebrow) - [place] Coma Score Best Eye Response ([place]): (4) Open Spontaneously Best Verbal Response ([place]): (5) Oriented Best Motor Response ([place]): (6) Obeys Commands Evnecia Total: 15 Course - Vital Signs Last Recorded V/S: Last Vital Signs Temp 37.2 C 05/14/18 15:01 Pulse 86 05/14/18 15:01 Resp 18 05/14/18 15:01 BP 160/91 H 05/14/18 15:01 Pulse Ox 96 05/14/18 15:01 - Radiology Interpretation Free Text/Narrative:: 67-year-old male presents to the ED after suffering a animal related accident. He 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 Finishing up and he was [place] leading his horseback to the trailer when something spooked his horse. There are several round stakes in the area so he is thinking that worse heard something. At any rate the horse jumped nearly in a full [place] and unfortunately his head came in contact with with Mr. Burgess's face. This is a significant blows it knocked him to the ground and he was transiently confused and dazed asking the same questions over and over again suggestive of concussion. He has an abrasion laceration to the medial aspect of his right eyebrow area. Is no evidence evidence of any other facial injuries. No dental injuries or tongue injuries. He does have diffuse cervical neck pain from hyperextension injury from the force of the blow. Plan CT head CT cervical spine to be done. - Re-Assessments/Exams Free Text/Narrative Re-Assessment/Exam: 05/14/18 17:25: Due to the busyness of the EDL was not able to get back to the patient as quickly as I would've liked. His CT of his head reveals an old lacunar infarct in the left basal ganglia. Reveals diffuse ischemic demyelination changes in both basal ganglia compatible with his age. It shows no skull fractures and no intracranial bleeding. There is no fractures of the visualized portions of the supraorbital ridge of the right eye. Cervical spine which reveals advanced degenerative changes particularly at the C5-C6 C6-C7 level with neural foraminal stenosis at C5-C6 level on the right side. He has no symptoms of radicular pain into his right arm. No fractures were identified. His wound was cleansed and proved to be more of an abrasion than a laceration. Nothing that needed to be sutured. Wound was treated with topical antibiotic bacitracin. Treatment at home is to be concussion protocol resting his brain is much as possible for the next 10-14 days and limiting his physical activities in terms of heavy lifting pushing pulling etc. It is located take Motrin or Tylenol. He was advised his neck is likely going to be quite stiff and sore for the next 24-48 hours and then slowly start to improve. He may follow-up with chiropractorif he so desires. Departure - Departure Time of Disposition: 18:09 Disposition: Home, Self-Care 01 Condition: Fair Clinical Impression: Closed head injury with concussion Qualifiers: Encounter type: initial encounter Loss of consciousness presence/duration: without LOC Qualified Code(s): S06.0X0A - Concussion without loss of consciousness, initial encounter Abrasion of periorbital region of face Qualifiers: Encounter type: initial encounter Qualified Code(s): S00.81XA - Abrasion of other part of head, initial encounter Sprain of cervical neck Qualifiers: Encounter type: initial encounter Qualified Code(s): S13.9XXA - Sprain of joints and ligaments of unspecified parts of neck, initial encounter - Discharge Information Referrals: Michael Gamez Jr, MD [Primary Care Provider] - Forms: ED Department Discharge Additional Instructions: Evaluation in the emergency him today after being essentially head butted by a horse. This was a significant blow as it knocked you to the ground. This caused transient confusion and symptoms suggestive of at least a mild concussion. Abrasion occurred to the right supraorbital ridge or eyebrow area above her right eye. It also does cause significant hyperextension of your neck due to the force of the blow. CT of the head and neck were carried out. They do not reveal any evidence of intracranial bleeding or fracture of the skull. Some suggestion may have had an old stroke within the left basal ganglia. This deserves follow-up with your primary care physician making sure blood pressure cholesterol are in order as well as an ultrasound of your carotid artery should be done to prevent a major stroke from occurring in the future. CT of your cervical spine revealed degenerative changes particularly at the lower bones between C5-C6 and C6-C7. Extensive arthritis at this level there is some narrowing around the nerve root at C5-C6 on the right side again no fractures or broken bones were identified. Expect to have increased stiffness and soreness in her neck develop over the next 24-48 hours however. Treatment is rest where you don't have to focus hard on anything. And rest is important for the next 7-14 days. Also no extreme physical exertion which would increase her blood pressure is advised for the next 10-14 days. It is okay to take Motrin and /or Tylenol as needed for headache relief. Apply bacitracin or Polysporin to the abrasion on your right face until wound is healed. Follow-up with personal physician if any further problems occur.
--- NOTE | 2018-05-14 16:17 | CT ---
CT cervical spine Technique: Multiple axial sections were obtained from both C1 inferiorly to the top of C2. Reconstructed sagittal and coronal images were reviewed. Comparison: No prior cervical spine imaging is available. Findings: Scattered degenerative change is seen within the apophyseal joints more prominent on the right side. Severe disc space narrowing is noted at C5-6 and C6-7. Anterior osteophytes are seen most prominent at C5-6 and lesser osteophytes at C6-7. Mild degenerative change is noted between the dens and anterior arch of C1. Mild to moderate right-sided neural foraminal stenosis is noted at C5-6. Other neural foramina are fairly well patent. No bony central canal stenosis is seen. No abnormal subluxation is seen. Mild degenerative spurring is noted within the uncovertebral joints primarily at C5-6. Impression: 1. Degenerative change as described above. 2. Nothing acute is seen on CT study of the cervical spine. Diagnostic code #2
--- NOTE | 2018-05-14 16:19 | CT ---
Head CT Technique: Multiple axial sections through the brain were obtained. Intravenous contrast was not utilized. Comparison: No prior intracranial imaging. Findings: Mild soft tissue swelling is seen within the scalp of the right forehead as well as within the superior right periorbital region. Ventricles along the basal cisterns and sulci over the the convexities are mildly prominent. Old lacunar infarct is noted within the left basal ganglia. No other abnormal parenchymal densities are seen. No evidence of intracranial hemorrhage. No midline shift or mass effect is seen. Bone window settings were reviewed which shows no acute calvarial abnormality. Visualized sinuses shows minimal mucosal thickening within the right ethmoid sinus. No acute calvarial abnormality is seen. Impression: 1. Soft tissue swelling as noted above. 2. Mild generalized atrophy. 3. No acute intracranial abnormality is identified. Diagnostic code #2
[2018-05-14 18:30] VITALS: BP 150/60
== END 2018-05-14 18:27 | disposition home or self-care (01) ==
LOC: JD.ED 14:54
DX: S06.0X0A Concussion without loss of consciousness, initial encounter (principal); S00.01XA Abrasion of scalp, initial encounter; S00.211A Abrasion of right eyelid and periocular area, initial encounter; S13.9XXA Sprain of joints and ligaments of unspecified parts of neck, initial encounter; E66.9 Obesity, unspecified; I10 Essential (primary) hypertension; Z88.1 Allergy status to other antibiotic agents; V80.010A Animal-rider injured by fall from or being thrown from horse in noncollision accident, initial encounter
CPT/HCPCS: 70450; 70450-26; 72125; 72125-26; 99284; 99284-25

== ENCOUNTER 2019-04-08 00:53 | Emergency (ER) | payer MEDICARE, BC ==
[2019-04-08 01:04] VITALS: BP 155/100
[2019-04-08] MEDS ORDERED: Iohexol 647 MG/ML 100 ML Bottle IVPUSH ONE (01:38)
[2019-04-08] MEDS ORDERED: diphenhydrAMINE 50 MG/ML SDV IVPUSH ONE (01:52)
[2019-04-08] MEDS ORDERED: Famotidine 20 MG/2 ML SDV IVPUSH ONE (01:52)
[2019-04-08] MEDS ORDERED: Ondansetron 4 MG/2 ML SDV IVPUSH ONE (01:52)
[2019-04-08] MEDS ORDERED: Lactated Ringers 1,000 ML IV ONE (03:45)
--- NOTE | 2019-04-08 04:11 | EDM.PDOC ---
ED HPI GENERAL MEDICAL PROBLEM - General Chief Complaint: Trauma Stated Complaint: BUCKED OFF A HORSE Time Seen by Provider: 04/08/19 01:57 - History of Present Illness INITIAL COMMENTS - FREE TEXT/NARRATIVE: 68-year-old male presents emergency room after being thrown off a horse and he hurts everywhere Around 3:00 this last afternoon the patient was riding a horse and was thrown off landing on his chest and abdomen he did hit his head but he denies loss of consciousness he has a mild headache he does have some neck pain but some of this is chronic he has significant chest and chest wall discomfort and some abdominal discomfort. This pain seemed to be getting worse over time the patient has not had any nausea or vomiting he has not noticed any blood in his urine and his did think he was wheezing at one point. - Related Data Allergies Allergy/AdvReac Type Severity Reaction Status Date / Time tetracycline [Tetracycline] Allergy Rash Verified 11/17/18 07:49 Home Meds: Home Meds Acetaminophen/HYDROcodone [Fenton 325-5 MG] 15 tab PO Q6H PRN #15 tablet [Rx] Lisinopril 20 mg PO ASDIRECTED 04/08/19 [History] hydroCHLOROthiazide [Hydrochlorothiazide] 12.5 mg PO DAILY 04/08/19 [History] Past Medical History HEENT History: Reports: Hard of Hearing, Impaired Vision Other HEENT History: Reading glasses only. Cardiovascular History: Reports: Hypertension Respiratory History: Reports: Other (See Below) Other Respiratory History: Pneumonia, years ago. Gastrointestinal History: Reports: GERD Other Gastrointestinal History: Twisted intestine, and surgery Musculoskeletal History: Reports: Gout Endocrine/Metabolic History: Reports: Obesity/BMI 30+ - Infectious Disease History Infectious Disease History: Reports: Chicken Pox, Measles, Mumps - Past Surgical History HEENT Surgical History: Reports: Cataract Surgery GI Surgical History: Reports: Other (See Below) Musculoskeletal Surgical History: Reports: Knee Replacement Social & Family History - Family History Family Medical History: Noncontributory HEENT: Reports: Cataract OBGYN: Reports: None Endocrine/Metabolic: Reports: Diabetes, type II - Tobacco Use Smoking Status *Q: Never Smoker - Caffeine Use Caffeine Use: Reports: Coffee - Alcohol Use Days Per Week of Alcohol Use: 7 Number of Drinks Per Day: 3 Total Drinks Per Week: 21 - Recreational Drug Use Recreational Drug Use: No - Living Situation & Occupation Living situation: Reports: , with Spouse Occupation: Employed ([employer]) Review of Systems - Review of Systems Review Of Systems: See Below Constitutional: Reports: No Symptoms Eyes: Reports: No Symptoms Ears: Reports: No Symptoms Nose: Reports: No Symptoms Mouth/Throat: Reports: No Symptoms Respiratory: Reports: Wheezing (Possible maybe), Pleuritic Chest Pain Cardiovascular: Reports: Other (He has some chest wall pain). Denies: Edema, Irregular Heart Rate, Lightheadedness, Palpitations GI/Abdominal: Reports: Abdominal Pain. Denies: Diarrhea, Nausea, Vomiting, Other Genitourinary: Reports: No Symptoms Musculoskeletal: Reports: No Symptoms Skin: Reports: No Symptoms Neurological: Reports: Headache. Denies: Confusion, Dizziness, Numbness, Seizure, Syncope Psychiatric: Reports: No Symptoms ED EXAM, GENERAL - Physical Exam Exam: See Below Exam Limited By: No Limitations General Appearance: Alert, Mild Distress (From pain) Eye Exam: Bilateral Eye: EOMI, Normal Inspection, PERRL Ears: Normal External Exam, Normal Canal, Hearing Grossly Normal, Normal TMs Nose: Normal Inspection, Normal Mucosa, No Blood Throat/Mouth: Normal Inspection, Normal Lips, Normal Teeth, Normal Gums, Normal Oropharynx, Normal Voice, No Airway Compromise Head: Atraumatic, Normocephalic Neck: Normal Inspection, Supple, Non-Tender, Full Range of Motion Respiratory/Chest: No Respiratory Distress, Lungs Clear, Normal Breath Sounds, Decreased Breath Sounds, Other (Has some chest wall discomfort the gets in the way of him having the ability to take a deep breath) Cardiovascular: Regular Rate, Rhythm, No Edema, No Murmur GI/Abdominal: Normal Bowel Sounds, Soft, Other (He has some abdominal wall pain no rigidity or guarding noted no rebound) Back Exam: Normal Inspection. No: CVA Tenderness (L), CVA Tenderness (R), Vertebral Tenderness Neurological: Alert, Oriented, CN II-XII Intact, Normal Cognition, Normal Reflexes, No Motor/Sensory Deficits, Other (He has some persistent dizziness after the fall mild headache) Psychiatric: Normal Affect Skin Exam: Warm, Dry, Intact Course - Vital Signs Last Recorded V/S: Last Vital Signs Temp 36.7 C 04/08/19 01:00 Pulse 66 04/08/19 01:00 Resp 18 04/08/19 01:00 BP 155/100 H 04/08/19 01:00 Pulse Ox 96 04/08/19 01:00 - Orders/Labs/Meds Orders: Active Orders 24 hr Category Date Time Status Cervical Spine wo Cont [CT] Stat Exams 04/08/19 01:04 Taken Chest Abdomen Pelvis w Cont [CT] Stat Exams 04/08/19 01:04 Taken Fingers Thumb Lt FA [CR] Stat Exams 04/08/19 01:04 Taken Foot Comp Min 3V Rt [CR] Stat Exams 04/08/19 01:04 Taken Head wo Cont [CT] Stat Exams 04/08/19 01:18 Taken Labs: Laboratory Tests 04/08/19 04/08/19 04/08/19 Range/Units 01:25 01:25 02:30 WBC 6.76 (4.23-9.07) K/mm3 RBC 4.37 L (4.63-6.08) M/mm3 Hgb 13.7 (13.7-17.5) gm/L Hct 40.2 (40.1-51.0) % MCV 92.0 (79.0-92.2) fl MCH 31.4 (25.7-32.2) pg MCHC 34.1 (32.2-35.5) g/dl RDW Std Deviation 40.3 (35.1-43.9) fL Plt Count 174 (163-337) K/mm3 MPV 9.5 (9.4-12.3) fl Neutrophils % (Manual) 60 (40-60) % Band Neutrophils % 1 (0-10) % Lymphocytes % (Manual) 27 (20-40) % Atypical Lymphs % 0 % Monocytes % (Manual) 11 H (2-10) % Eosinophils % (Manual) 1 (0.8-7.0) % Basophils % (Manual) 0 L (0.2-1.2) Platelet Estimate Adequate Plt Morphology Comment Normal RBC Morph Comment Normal Sodium 136 (136-145) mEq/L Potassium 4.2 (3.5-5.1) mEq/L Chloride 102 (98-107) mEq/L Carbon Dioxide 23 (21-32) mEq/L Anion Gap 15.2 H (5-15) BUN 24 H (7-18) mg/dL Creatinine 1.1 (0.7-1.3) mg/dL Est Cr Clr Drug Dosing 68.21 mL/min Estimated GFR (MDRD) > 60 (>60) mL/min BUN/Creatinine Ratio 21.8 H (14-18) Glucose 93 (80-115) mg/dL Calcium 9.2 (8.5-10.1) mg/dL Total Bilirubin 0.3 (0.2-1.0) mg/dL AST 24 (15-37) U/L ALT 36 (16-63) U/L Alkaline Phosphatase 83 (46-116) U/L Total Protein 7.3 (6.4-8.2) g/dl Albumin 4.1 (3.4-5.0) g/dl Globulin 3.2 gm/dL Albumin/Globulin Ratio 1.3 (1-2) Urine Color Yellow (Yellow) Urine Appearance Clear (Clear) Urine pH 5.5 (5.0-8.0) Ur Specific [place] 1.015 (1.005-1.030) Urine Protein Negative (Negative) Urine Glucose (UA) Negative (Negative) Urine Ketones Trace H (Negative) Urine Occult Blood Negative (Negative) Urine Nitrite Negative (Negative) Urine Bilirubin Negative (Negative) Urine Urobilinogen 0.2 (0.2-1.0) Ur Leukocyte Esterase Negative (Negative) Urine RBC Not seen (0-5) /hpf Urine WBC Not seen (0-5) /hpf Ur Epithelial Cells Not seen (0-5) /hpf Urine Bacteria Rare (FEW) /hpf Urine Mucus Few (FEW) /hpf Meds: Medications Discontinued Medications Generic Name Dose Route Start Last Admin Trade Name Freq PRN Reason Stop Dose Admin Hydrocodone Bitart/Acetaminophen 1 tab 04/08/19 04:49 Fenton 325-5 Mg PO 04/08/19 04:50 ONETIME ONE Diphenhydramine HCl 50 mg 04/08/19 01:52 04/08/19 01:55 Benadryl IVPUSH 04/08/19 01:53 50 mg ONETIME ONE Administration Famotidine 40 mg 04/08/19 01:52 04/08/19 01:55 Pepcid IVPUSH 04/08/19 01:53 40 mg ONETIME ONE Administration Lactated Ringer's 1,000 mls @ 999 mls/hr 04/08/19 03:45 04/08/19 03:51 Ringers, Lactated IV 04/08/19 04:45 999 mls/hr .BOLUS ONE Administration Iohexol 100 ml 04/08/19 01:38 04/08/19 01:51 Omnipaque-300 IVPUSH 04/08/19 01:39 100 ml ONETIME ONE Administration Ondansetron HCl 4 mg 04/08/19 01:52 04/08/19 02:13 Zofran IVPUSH 04/08/19 01:53 Not Given ONETIME ONE - Re-Assessments/Exams Free Text/Narrative Re-Assessment/Exam: 04/08/19 04:43 Return evaluation shows a prerenal state CTs were none with a persistent worsening pain of his head neck both were unremarkable no rib fractures no acute intrathoracic pathology abdomen pelvis no acute pathology. While over at CT the patient did have a reaction after the contrast with in route develop some nausea he was given Benadryl and Pepcid and on my exam and radiology he was moving air well did not feel short of breath. When he was brought back to emergency department he was started on IV fluids and we observed him for a couple hours at which time he continued to do well the patient will be discharged this time Departure - Departure Time of Disposition: 04:54 Disposition: DC[facility] 05 Clinical Impression: Animal-rider injured by fall from or being thrown from horse in noncollision accident, initial encounter, Contusion, chest wall, Pain of left thumb, Right foot pain, Abdominal wall contusion - Discharge Information Prescriptions: Acetaminophen/HYDROcodone [Fenton 325-5 MG] 15 tab PO Q6H PRN #15 tablet PRN Reason: Pain Referrals: Michael Gamez Jr, MD [Primary Care Provider] - Forms: ED Department Discharge Additional Instructions: Return to the emergency room with any questions problems worsening symptoms. Use the pain medications as needed. Take one or 2 every 6 hours as needed for pain allow 12 hours after using this medication before driving or returning to work. Follow-up with your doctor early next week if needed. - My Orders Last 24 Hours: My Active Orders 04/08/19 01:04 Cervical Spine wo Cont [CT] Stat Chest Abdomen Pelvis w Cont [CT] Stat Fingers Thumb Lt FA [CR] Stat Foot Comp Min 3V Rt [CR] Stat 04/08/19 01:18 Head wo Cont [CT] Stat - Assessment/Plan Last 24 Hours: My Active Orders 04/08/19 01:04 Cervical Spine wo Cont [CT] Stat Chest Abdomen Pelvis w Cont [CT] Stat Fingers Thumb Lt FA [CR] Stat Foot Comp Min 3V Rt [CR] Stat 04/08/19 01:18 Head wo Cont [CT] Stat
[2019-04-08] MEDS ORDERED: Acetaminophen/HYDROcodone 325-5 MG Tab PO ONE (04:49)
[2019-04-08] MEDS ORDERED: Take Home: Acetaminophen/HYDROcodone 325-5 MG, 5 Tab Pack PO ONE (05:00)
--- NOTE | 2019-04-09 06:34 | CR ---
Left thumb: Three views of the left thumb were obtained. Comparison: No prior hand or thumb study. Several calcifications are seen off the MCP joint compatible with old injury. Joint spaces are preserved. No acute fracture or dislocation is identified. Impression: 1. Incidental soft tissue calcifications. 2. No acute abnormality is appreciated on the left thumb study. Diagnostic code #2
--- NOTE | 2019-04-09 06:34 | CT ---
Head CT Technique: Multiple axial sections through the brain were obtained. Intravenous contrast was not utilized. Comparison: Prior head CT study of 05/14/18 is available. Findings: Ventricles along with basal cisterns and sulci over the convexities are mildly prominent. 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 No other abnormal parenchymal densities are seen. No evidence of intracranial hemorrhage. No midline shift or mass effect is seen. Mild areas of mucosal thickening are noted within the ethmoid sinuses and right sphenoid sinus which are felt to be incidental. No acute calvarial abnormality is seen. Impression: 1. Mild senescent change. Nothing acute is appreciated on noncontrast head CT exam. Diagnostic code #2 I agree with preliminary report from [facility], finalized on 04/08/19, 3:04 AM Central Time
--- NOTE | 2019-04-09 06:34 | CR ---
Right foot: Three views of the right foot were obtained. Comparison: No prior foot study. Mild joint space narrowing is noted within the first MTP joint. Small plantar spur is present. No acute fracture, dislocation or other bony abnormality is seen. Impression: 1. Incidental findings. Nothing acute is appreciated on right foot exam. Diagnostic code #2
--- NOTE | 2019-04-09 06:34 | CT ---
CT cervical spine Technique: Multiple axial sections were obtained from above C1 inferiorly to the mid T2 level. Reconstructed sagittal and coronal images were reviewed. Comparison: Previous CT cervical spine study of 05/14/18. Findings: Degenerative change is noted between the dens and anterior arch of C1. Severe disc space narrowing is noted at C5-C6. Anterior osteophytes noted at C5-C6 with lesser osteophytes at C6-C7. Moderate narrowing of the right neural foramen noted at C5-C6. Minimal narrowing of the right neural foramen noted at C3-C4 and C4-C5. No fracture is identified. No abnormal subluxation is seen. Scattered degenerative change is noted within the apophyseal joints. Degenerative spurring is noted within the uncovertebral joints most prominent at C5-C6 on the right side. Impression: 1. Degenerative change as noted above. Nothing acute is identified. Diagnostic code #2 I agree with preliminary report from [facility], finalized on 04/08/19, 3:04 AM Central Time
--- NOTE | 2019-04-09 06:34 | CT ---
CT chest Technique: Multiple axial sections through the chest were obtained. Intravenous contrast was utilized. Comparison: No prior chest CT, prior chest x-ray of 09/24/17 is available. Findings: Mediastinum and hilar regions are unremarkable. Small normal appearing mediastinal lymph nodes are seen. No axillary adenopathy is identified. No pericardial thickening is seen. Slight parenchymal densities noted within both lung bases which are compatible with mild atelectasis. Lungs otherwise are clear. No acute pulmonary contusion is identified. No pleural effusions or pneumothorax are seen. No discrete rib abnormality is appreciated. Vertebral body heights are maintained. Reconstructed sagittal images of the sternum are intact. Impression: 1. Nothing acute is identified on CT study of the chest. Diagnostic code #2 I agree with preliminary report from [facility], finalized on 04/08/19, 3:[address] abdomen and pelvis Technique: Multiple axial sections were obtained from above the dome of the diaphragm inferiorly through the pubic symphysis. Intravenous contrast was utilized. No oral contrast has been given. Comparison: Prior CT abdomen and pelvis exam of 01/28/15. Findings: Liver contains no focal abnormality. Spleen appears within normal limits. Adrenal gland on the left side shows a small nodule which is stable from prior exam and is incidental. This adrenal nodule measures 1.1 cm. Small bump is noted off the mid left kidney which is stable from prior CT exam and is therefore felt to be benign and incidental. Nothing acute is seen within the kidneys. Pancreas shows no abnormality. Gallbladder contains no calcified gallstones. Aorta shows atherosclerotic calcification without aneurysm. No retroperitoneal adenopathy or mesenteric abnormalities are seen. No pelvic mass or adenopathy is identified. Disc space narrowing is noted at L5-S1 with vacuum disc phenomena. Deformity is noted to the right of the pubic symphysis presumably due to old trauma. Nothing acute is appreciated within the osseous structures. Impression: 1. Incidental findings. Nothing acute is appreciated on CT study of the abdomen and pelvis. Diagnostic code #2 I agree with preliminary report from [facility], finalized on 04/08/19, 2:02 AM Central Time
== END 2019-04-08 05:08 | disposition home or self-care (01) ==
LOC: JD.ED 00:53
DX: S30.1XXA Contusion of abdominal wall, initial encounter (principal); S20.219A Contusion of unspecified front wall of thorax, initial encounter; M79.671 Pain in right foot; M79.645 Pain in left finger(s); I10 Essential (primary) hypertension; E66.9 Obesity, unspecified; Z98.49 Cataract extraction status, unspecified eye; V80.010A Animal-rider injured by fall from or being thrown from horse in noncollision accident, initial encounter
CPT/HCPCS: 36415; 70450; 71260; 72125; 73140; 73630; 74177; 80053; 81001; 85007; 85027; 96361; 96374; 96375; 99284; A9270; J1200; J3490; J7120; Q9967